=== PATIENT | male | born 1945 | race Caucasian/White ===

== ENCOUNTER → 2022-10-06 | Outpatient (CLI) | payer OTHER ==
[~2022-10-06] MED LIST: REGADENOSON 0.4 MG/5 ML PF SYG IVP ONE
== END | disposition home or self-care (01) ==
LOC: SHCH 08:28
PROVIDERS: ATTEND Internal Medicine Cardiovascular Disease
DX: I11.9 Hypertensive heart disease without heart failure (principal); I25.10 Atherosclerotic heart disease of native coronary artery without angina pectoris; I25.2 Old myocardial infarction; I48.91 Unspecified atrial fibrillation; E78.5 Hyperlipidemia, unspecified; Z95.5 Presence of coronary angioplasty implant and graft; Z95.0 Presence of cardiac pacemaker; Z79.01 Long term (current) use of anticoagulants; Z79.02 Long term (current) use of antithrombotics/antiplatelets; Z79.899 Other long term (current) drug therapy
CPT/HCPCS: 78452; 96374; 93017; J2785; A9500 ×2

== ENCOUNTER → 2023-06-15 | Outpatient (CLI) | payer OTHER | END | disposition home or self-care (01) | LOC: SHCH 13:15 | PROVIDERS: ATTEND Internal Medicine Cardiovascular Disease | DX: I08.8 Other rheumatic multiple valve diseases (principal); I25.2 Old myocardial infarction | CPT/HCPCS: 93306 ==

== ENCOUNTER → 2024-10-11 | Outpatient (CLI) | payer OTHER ==
--- NOTE | 2024-10-12 08:46 | HMCSR ---
APPROVED REPORT EXAM: Two-dimensional and M-mode echocardiogram with Doppler and color Doppler. INDICATION ICD: Chronic systolic heart failure I50.20 2D Dimensions RVDd3.8 cmLVEF(%)54.9 (>50%)LVED Vol(simp.)168.0 mL IVSd1.3 (0.7-1.1cm)FS(%)29 %LVES Vol(simp.)81.0 mL LVDd4.9 (3.8-5.6cm)Ao Root(2D)3.5 (2.0-3.7cm)LVEF(%, simp.)52 % PWd1.2 (0.7-1.1cm)LVOT diam2.4 (1.8-2.4cm)LA ESV INDEX (BP)42.71 mL/m2 LVDs3.5 (2.5-4.0cm)IVC diam1.4 cm Aortic Valve AoV Vmax2.9 m/Bill Peak GR34.7 mmHgLVOT Vmax1.0 m/s AoV VTI0.7 mAo Mean GR20.6 mmHgLVOT VTI0.22 m MIGUEL (VMAX)1.4 cm2Al P1/2T992 msAVA (VTI) 1.4 cm2 Mitral Valve MV E Vmax93.8 cm/sDECEL [id number] msMR FKU686 cm2 MV A Vmax57.3 cm/sMR Mean PG87 mmHg E/A ratio1.6 MR Max PG133 mmHg TDI E/E' Fgixsl57.8E/E' Xjairdu10.8 Pulmonary Valve PV Vmax0.8 m/sPV VTI0.17 mPV Mean GR2 mmHg PV Peak GR2.5 mmHgPI End Magaly. Tino 1.3 cm/s Tricuspid Valve TR Vmax2.6 m/sRAP (EST) 3 acCfSYRL43.7 mmHg TR Peak GR27.7 mmHg Left Ventricle Left ventricular cavity size is normal. There is mild concentric left ventricular hypertrophy. Sigmoi d septum is present. LVEF is 50-55%. Indeterminate diastolic dysfunction. Right Ventricle The right ventricle is normal size. The right ventricular systolic function is normal. Atria The left atrium is moderately dilated. The right atrium size is normal. Aortic Valve The aortic valve is calcified and displays decreased opening. Mild aortic regurgitation. Mild aortic stenosis. Calculated aortic valve area is 1.4 cm2 with maximum pressure gradient of 34.7 mmHg and amada n pressure gradient of 20.6 mmHg. Mitral Valve Mitral valve leaflets are mildly sclerotic but open well. Mitral annular calcification is mild. Iona l regurgitation is mild to moderate. There is no mitral valve stenosis. Tricuspid Valve The tricuspid valve leaflets appear normal. There is mild tricuspid regurgitation. Right ventricular systolic pressure is estimated at 31 mmHg. Pulmonic Valve Pulmonic valve is not well visualized. There is trace to mild valvular regurgitation. Great Vessels The aortic root is normal in size. The IVC is normal in size and collapses >50% with inspiration. Pericardium No pericardial effusion. Conclusion There is mild concentric left ventricular hypertrophy. LVEF is 50-55%. Grade 2 diastolic dysfunction. Mild aortic regurgitation. Mild aortic stenosis. Calculated aortic valve area is 1.4 cm2 with maximum pressure gradient of 34.7 mmHg and mean pressure gradient of 20.6 mmHg. Mitral regurgitation is mild to moderate. There is mild tricuspid regurgitation. Right ventricular systolic pressure is estimated at 31 mmHg.
== END | disposition home or self-care (01) ==
LOC: SHCH 10:48
PROVIDERS: ATTEND Internal Medicine Cardiovascular Disease
DX: I08.8 Other rheumatic multiple valve diseases (principal); I50.22 Chronic systolic (congestive) heart failure
CPT/HCPCS: 93306; 94060; 94727; 94729